=== PATIENT | female | born 1970 | race Caucasian/White ===

== ENCOUNTER 2018-04-09 19:56 | Emergency (ER) | payer OTHER ==
[~2018-04-09] VITALS: Ht 144.8 cm; Wt 59.0 kg
[2018-04-09 20:10] VITALS: BP 105/65
--- NOTE | 2018-04-09 20:10 | NUR ---
TO BED # 7 AMBULATORY, REPORT GIVEN TO FRANCISCO MOTT
--- NOTE | 2018-04-09 20:12 | NUR ---
PT PRESENTED ER WITH COMPLAINT OF PAIN TO THE ABDOMEN X 4 DAYS. PT STATES SHE HAD SOME ABD PAIN, DIZZINESS AND NAUSEA. PT DENIES VOMITING. PT IS A/O X 4. PT BOWEL SOUNDS ACTIVE X 4. PT PAIN LEVEL IS 5/10 AT THIS TIME. NO N/V AT THIS TIME.SKIN IS PINK/WARM/DRY; AAOX4 WITH EVEN AND STEADY GAIT; LUNGS CLEAR BL; VSS; PATIENT POSITIONED FOR COMFORT; HOB ELEVATED; BEDRAILS UP X2; BED DOWN. ER MD MADE AWARE OF PT STATUS.
--- NOTE | 2018-04-09 20:28 | NUR ---
Dr. Gill evaluating patient at bedside.
[2018-04-09] MEDS ORDERED: KETOROLAC 30 MG/ML VIAL IVP ONE (20:35)
--- NOTE | 2018-04-09 20:54 | NUR ---
PT WENT TO CT BY WHEEL CHAIR
[2018-04-09 20:58] LABS: BASOPHILS % (AUTO) 0.6 % (0.0-2.0); EOSINOPHILS # (AUTO) 0.1 K/uL (0-0.4); EOSINOPHILS % (AUTO) 1.4 % (0.0-4.0); HEMATOCRIT 43.9 % (36-48); HEMOGLOBIN 14.6 g/dL (12.0-16.0); LYMPHOCYTES # (AUTO) 2.1 K/uL (2.5-16.5); LYMPHOCYTES % (AUTO) 37.8 % (20.5-51.1); MEAN CORPUSCULAR HEMOGLOBIN 29 pg (27-31); MEAN CORPUSCULAR HGB CONC 33 g/dL (33-37); MEAN CORPUSCULAR VOLUME 85.8 fL (80-94); MONOCYTES # (AUTO) 0.4 K/uL (0.8-1.0); MONOCYTES % (AUTO) 7.2 % (1.7-9.3); PLATELET COUNT (AUTO) 256 K/uL (140-450); RED BLOOD CELL COUNT(AUTO) 5.11 MIL/uL (4.20-5.40); WHITE BLOOD COUNT (AUTO) 5.6 K/uL (4.8-10.8)
[2018-04-09 21:11] LABS: ANION GAP 13.2 (8-16); CARBON DIOXIDE 27.6 mmol/L (21-32); CREATININE 0.7 mg/dL (0.6-1.3); POTASSIUM 3.8 mmol/L (3.5-5.1)
[2018-04-09 21:18] LABS: TOTAL BILIRUBIN 0.3 mg/dL (0.0-1.0)
[2018-04-09] MEDS ORDERED: ACETAMINOPHEN EXTRA STRENGTH 500 MG TAB PO ONE (21:20)
[2018-04-09 21:43] VITALS: BP 110/68
== END 2018-04-09 21:44 | disposition home or self-care (01) ==
LOC: MED 19:56
DX: R10.32 Left lower quadrant pain (principal); Z95.0 Presence of cardiac pacemaker; Z90.89 Acquired absence of other organs; Z88.0 Allergy status to penicillin
CPT/HCPCS: 36415; 80053; 81002; 81025; 83690; 85025; 99284; J1885